=== PATIENT | female | born 1990 | race African-American/Black ===

== ENCOUNTER 2016-07-21 06:12 | Emergency (ER) | payer OTHER ==
[~2016-07-21] VITALS: Ht 157.5 cm; Wt 56.2 kg
[~2016-07-21 06:12] MED LIST: PREN27TA7 PO
[2016-07-21 07:20] VITALS: BP 113/68
== END 2016-07-21 07:40 | disposition home or self-care (01) ==
LOC: ER 06:26
DX: J03.90 Acute tonsillitis, unspecified (principal)